=== PATIENT | female | born 1995 | race Caucasian/White ===

== ENCOUNTER 2016-06-09 01:30 | Emergency (ER) | payer OTHER ==
[~2016-06-09] VITALS: Ht 162.6 cm; Wt 60.0 kg
[2016-06-09 01:31] VITALS: PULSE 112; RESP 24; TEMP 98; O2SAT 100
[2016-06-09] MEDS ORDERED: STOO100C PO (01:56)
[2016-06-09] MEDS ORDERED: HYDR-3516 PO (01:56)
[2016-06-09 01:57] VITALS: BP 127/83; PULSE 74; RESP 16; O2SAT 100
[2016-06-09] MEDS ORDERED: SODIUM CHLOR 0.9% 1000 ML INJ 1,000 ML IV SCH (02:16)
[2016-06-09] MEDS ORDERED: ONDANSETRON HCL 4 MG/2 ML VIAL IVP ONE (02:30)
[2016-06-09] MEDS ORDERED: SODIUM CHLORIDE 0.9% FLUSH 10 ML FLUSH IV FLUSH PRN (02:30)
[2016-06-09 03:02] LABS: AUTOMATED NEUTROPHIL # 6.1 TH/MM3 (1.8-7.7); BASOPHIL % 0.3 % (0.0-2.0); EOSINOPHIL # 0.1 TH/MM3 (0-0.4); EOSINOPHIL % 0.9 % (0.0-4.0); HEMATOCRIT 38.3 % (35.0-46.0); LYMPH % 31.3 % (9.0-44.0); LYMPHOCYTE # 3.2 TH/MM3 (1.0-4.8); MEAN CELL VOLUME 74.6 FL (80.0-100.0); MEAN CORPUSCULAR HEMOGLOBIN 24.3 PG (27.0-34.0); MEAN CORPUSCULAR HGB CONC 32.6 % (32.0-36.0); MONO % 7.2 % (0.0-8.0); NEUT % 60.3 % (16.0-70.0); PLATELET COUNT 315 TH/MM3 (150-450); RED BLOOD COUNT 5.13 MIL/MM3 (4.00-5.30); RED CELL DISTRIBUTION WIDTH 14.8 % (11.6-17.2); WHITE BLOOD COUNT 10.1 TH/MM3 (4.0-11.0)
[2016-06-09 03:03] LABS: BACTERIA, URINE OCC /hpf; BLOOD, URINE NEG (NEG); COMMENT (UR) CULT NOT INDICATED; CULTURE IF INDICATED CULT NOT INDICATED; GLUCOSE,URINE NEG (NEG); HEMO FLAGS AUTO DIFF; KETONE, URINE NEG (NEG); NITRITE,URINE NEG (NEG); PH, URINE 7.5 (5.0-8.5); RENAL EPITHELIAL CELLS <1 /hpf; SQUAMOUS EPITHELIAL CELL URINE 1 /hpf (0-5); URINE COLOR COLORLESS (YELLW/STRAW)
[2016-06-09 03:13] LABS: BICARBONATE 28.8 MEQ/L (21.0-32.0); POTASSIUM 3.9 MEQ/L (3.5-5.1)
[2016-06-09 03:26] LABS: OVALOCYTES 1+ (NORMAL); SCAN/DIFF AUTO DIFF CONFIRMED
[2016-06-09] MEDS ORDERED: ZOFR4TAB3 SL (03:55)
--- NOTE | 2016-06-09 03:56 | PD ---
HPI Chief Complaint: Respiratory Distress Time Seen by Provider: 02:16 Travel History International Travel<30 days: No Contact w/Intl Traveler<30days: No Traveled to known affect area: No History of Present Illness HPI 20-year-old female arrives stating she feels short of breath. She also states she has been vomiting. Oral intake tends to cause vomiting. She reports 2 weeks ago she underwent a bilateral cystectomy from the ovaries performed by Dr. Daly in [place]. She reports bleeding from the trocar incision sites for one week. She has since seen Dr. Daly. Bowel movements are painful. She reports is difficulty urinating. She has been taking Percocet which she thinks might be making her nauseous although it's helping with pain. [facility] Past Medical History Genitourinary: Yes (BLADDER INFECTION) Immunizations Current: Yes Tetanus Vaccination: < 5 Years Influenza Vaccination: No ?: Not LMP: 05/20/16 Ovarian Cysts: Yes Past Surgical History Gynecologic Surgery: Yes (OVARIAN CYST SURGEY 05/27/16) Social History Alcohol Use: No Tobacco Use: No Substance Use: No Allergies-Medications (Allergen,Severity, Reaction): Coded Allergies: No Known Allergies (Unverified , 06/09/16) Reported Meds & Prescriptions Reported Meds & Active Scripts Active Reported Stool Softener (Docusate Sodium) 100 Mg Cap 1 Cap PO DAILY Hydrocodone-Acetaminophen 5-325 mg Tab 1 Tab PO Q4H PRN Review of Systems Except as stated in HPI: all other systems reviewed are Neg Respiratory: Positive: Shortness of Breath Gastrointestinal: Positive: Nausea, Vomiting, Abdominal Pain Physical Exam Narrative GENERAL: The patient is well-appearing 20-year-old female no distress SKIN: Focused skin assessment warm/dry. HEAD: Atraumatic. Normocephalic. EYES: Pupils equal and round. No scleral icterus. No injection or drainage. ENT: No nasal bleeding or discharge. Mucous membranes pink and moist. NECK: Trachea midline. No JVD. CARDIOVASCULAR: Regular rate and rhythm. No murmur appreciated. RESPIRATORY: No accessory muscle use. Clear to auscultation. Breath sounds equal bilaterally. GASTROINTESTINAL: Short-term incision sites are clean and there is no bleeding about them. The abdomen is soft. there is mild appropriate generalized tenderness MUSCULOSKELETAL: No obvious deformities. No clubbing. No cyanosis. No edema. NEUROLOGICAL: Awake and alert. No obvious cranial nerve deficits. Motor grossly within normal limits. Normal speech. PSYCHIATRIC: Appropriate mood and affect; insight and judgment normal. Data Data Last Documented VS Vital Signs Date Time Temp Pulse Resp B/P Pulse Ox O2 Delivery O2 Flow Rate FiO2 06/09/16 01:57 74 16 127/83 100 Room Air 06/09/16 01:31 98.0 Vital signs reviewed Orders Complete Blood Count With Diff (06/09/16 02:16) Urinalysis - C+S If Indicated (06/09/16 02:16) Iv Access Insert/Monitor (06/09/16 02:16) Ecg Monitoring (06/09/16 02:16) Oximetry (06/09/16 02:16) Ondansetron Inj (Zofran Inj) (06/09/16 02:30) Sodium Chlor 0.9% 1000 Ml Inj (Ns 1000 M (06/09/16 02:16) Sodium Chloride 0.9% Flush (Ns Flush) (06/09/16 02:30) Ed Urine Pregnancytest Poc (06/09/16 02:16) Basic Metabolic Panel (Bmp) (06/09/16 02:16) Labs Laboratory Tests Test 06/09/16 02:42 White Blood Count 10.1 TH/MM3 Red Blood Count 5.13 MIL/MM3 Hemoglobin 12.5 GM/DL Hematocrit 38.3 % Mean Corpuscular Volume 74.6 FL Mean Corpuscular Hemoglobin 24.3 PG Mean Corpuscular Hemoglobin 32.6 % Concent Red Cell Distribution Width 14.8 % Platelet Count 315 TH/MM3 Mean Platelet Volume 8.2 FL Neutrophils (%) (Auto) 60.3 % Lymphocytes (%) (Auto) 31.3 % Monocytes (%) (Auto) 7.2 % Eosinophils (%) (Auto) 0.9 % Basophils (%) (Auto) 0.3 % Neutrophils # (Auto) 6.1 TH/MM3 Lymphocytes # (Auto) 3.2 TH/MM3 Monocytes # (Auto) 0.7 TH/MM3 Eosinophils # (Auto) 0.1 TH/MM3 Basophils # (Auto) 0.0 TH/MM3 CBC Comment AUTO DIFF Differential Comment AUTO DIFF CONFIRMED Ovalocytes 1+ Urine Color COLORLESS Urine Turbidity CLEAR Urine pH 7.5 Urine Specific [place] 1.003 Urine Protein NEG mg/dL Urine Glucose (UA) NEG mg/dL Urine Ketones NEG mg/dL Urine Occult Blood NEG Urine Nitrite NEG Urine Bilirubin NEG Urine Urobilinogen LESS THAN 2.0 MG/DL Urine Leukocyte Esterase NEG Urine RBC LESS THAN 1 /hpf Urine WBC 1 /hpf Urine Squamous Epithelial 1 /hpf Cells Urine Renal Epithelial Cells <1 /hpf Urine Bacteria OCC /hpf Microscopic Urinalysis Comment CULT NOT INDICATED Sodium Level 142 MEQ/L Potassium Level 3.9 MEQ/L Chloride Level 106 MEQ/L Carbon Dioxide Level 28.8 MEQ/L Anion Gap 7 MEQ/L Blood Urea Nitrogen 12 MG/DL Creatinine 0.67 MG/DL Estimat Glomerular Filtration 111 ML/MIN Rate Random Glucose 93 MG/DL Calcium Level 9.2 MG/DL [facility] Medical Decision Making Medical Screen Exam Complete: Yes Emergency Medical Condition: Yes Medical Record Reviewed: Yes Differential Diagnosis Constipation, Gastritis, Acute Cholecystitis, Biliary Colic, Pancreatitis, CANELA , Hepatitis, Bowel Obstruction, Cystitis, Mesenteric Ischemia, AAA, Appendicitis , Renal Stone/Hydronephrosis, GERD, perforated viscous Narrative Course CBC & BMP Diagram 06/09/16 02:42 Occasional bacteriuria on urinalysis Patient has been resting comfortably throughout her ER stay. There is no abnormality on the blood work and pretest likelihood for significant intra- abdominal pathology is considered quite low. We'll discharge the patient home. 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 Daly. Diagnosis Primary Impression: Abdominal pain Qualified Code: R10.9 - Abdominal pain, unspecified location Additional Impressions: Nausea & vomiting Qualified Code: R11.2 - Nausea and vomiting, intractability of vomiting not specified, unspecified vomiting type Shortness of breath Referrals: DR DALY 2 days Additional Instructions: You have a choice when it comes to health care, and we are glad that you chose [facility]. Hopefully, we have met your expectations on today's visit. You are welcome to return to [facility] at any time, as we are committed to meeting the health care needs of our community. Med/Other Pt SpecificInfo: Prescription(s) given Scripts Ondansetron Odt (Zofran Odt)4 Mg Tab4 Mg SL Q8HR PRN (Nausea/Vomiting) #10 TAB Ref 0 Prov:Gordon Chávez MD 06/09/16 Disposition: 01 DISCHARGE HOME Condition: Stable Gordon Chávez MD Jun 09, 2016 03:56
[2016-06-09 04:02] VITALS: BP 120/79
== END 2016-06-09 04:13 | disposition home or self-care (01) ==
LOC: NEPC 01:30
DX: R10.9 Unspecified abdominal pain (principal); R11.2 Nausea with vomiting, unspecified; R06.02 Shortness of breath
CPT/HCPCS: 80048; 81001; 84703; 85025; 96374; 99284; J2405; J7030